=== PATIENT | female | born 1990 | race Two or more races ===

== ENCOUNTER 2018-03-12 10:54 | Emergency (ER) | payer OTHER ==
[~2018-03-12] VITALS: Ht 162.6 cm; Wt 90.7 kg
[2018-03-12] MEDS ORDERED: PERCOCET 5-3251 EACH PO (14:04)
[2018-03-12] MEDS ORDERED: IBUPROFEN800 MG PO (14:04)
== END 2018-03-12 14:16 | disposition home or self-care (01) ==
LOC: ER 10:54
DX: S20.211A Contusion of right front wall of thorax, initial encounter (principal); W01.198A Fall on same level from slipping, tripping and stumbling with subsequent striking against other object, initial encounter; Y93.89 Activity, other specified; Y92.814 Boat as the place of occurrence of the external cause; Y99.8 Other external cause status